=== PATIENT | male | born 1955 | race Caucasian/White ===

== ENCOUNTER 2022-04-25 11:34 | Day surgery (SDC) | payer MEDICARE, BC ==
[2022-04-24 09:29] LABS: BASOPHILS % (AUTO) 0.6 % (0-1); EOSINOPHILS # (AUTO) 0.2 X10'3 (0-0.9); EOSINOPHILS % (AUTO) 2.9 % (0-6); HEMATOCRIT 36.3 % (42.0-52.0); HEMOGLOBIN 12.3 g/dl (14.0-17.9); LYMPHOCYTES # (AUTO) 0.9 X10'3 (1.1-4.8); LYMPHOCYTES % (AUTO) 14.2 % (21-51); MEAN CORPUSCULAR HEMOGLOBIN 27.1 PG (27.0-31.0); MEAN CORPUSCULAR VOLUME 79.9 FL (78-98); MEAN PLATELET VOLUME 7.3 FL (7.4-10.4); MONOCYTES # (AUTO) 0.5 X10'3 (0-0.9); NEUTROPHILS # (AUTO) 4.7 X10'3 (1.8-7.7); NEUTROPHILS % (AUTO) 74.3 % (42-75); PLATELET COUNT 120 X10'3 (140-440); RED BLOOD COUNT 4.54 X10'6 (4.70-6.10); RED CELL DISTRIBUTION WIDTH 15.7 % (11.5-14.5); WHITE BLOOD COUNT 6.3 X10'3 (4.5-11.0)
[2022-04-24 09:37] LABS: APTT 27 SECONDS (22-32)
[2022-04-24 09:39] LABS: ALBUMIN 2.9 G/DL (3.4-5.0); ANION GAP 5 (8-16); BLOOD UREA NITROGEN 17 MG/DL (7-18); BUN/CREATININE RATIO 21.3 (5.4-32.0); CALCIUM 9.4 MG/DL (8.5-10.1); CHLORIDE 102 MMOL/L (99-107); CHOL/HDL RATIO 2.3 (0.00-4.99); CHOLESTEROL 164 MG/DL (0-200); GLUCOSE 170 MG/DL (70-104); HDL CHOLESTEROL 71 MG/DL (35-60); LDL CHOLESTEROL 75 MG/DL (50-100); SODIUM 137 MMOL/L (135-145); TOTAL CARBON DIOXIDE 30.2 MMOL/L (24-32); TRIGLYCERIDES 71 MG/DL (20-135); eGFR > 90 ML/MIN
[~2022-04-25] VITALS: Ht 172.7 cm; Wt 84.1 kg
[2022-04-25] MEDS ORDERED: normal saline 1,000 ML IV SCH (11:50)
[2022-04-25] MEDS ORDERED: diphenhydrAMINE 25mg capsule PO PRN (11:50)
[2022-04-25] MEDS ORDERED: LORazepam 0.5 MG tablet PO PRN (11:50)
[2022-04-25] MEDS ORDERED: LIDOcaine/PRILOcaine 5gm cream TP ONE (11:55)
[2022-04-25 11:57] VITALS: BP 112/68
[2022-04-25] MEDS ORDERED: METO25TA6 PO (12:32)
[2022-04-25] MEDS ORDERED: NOVLG SQ (12:32)
[2022-04-25] MEDS ORDERED: RAMI5CAP65 PO (12:32)
[2022-04-25] MEDS ORDERED: METF-438 PO (12:32)
[2022-04-25] MEDS ORDERED: FLO0.4C PO (12:32)
[2022-04-25] MEDS ORDERED: SITA100T11 PO (12:32)
[2022-04-25] MEDS ORDERED: LANTUS SQ (12:32)
[2022-04-25] MEDS ORDERED: ASPI-1053 PO (12:34)
[2022-04-25] MEDS ORDERED: voltaren (12:34)
[2022-04-25] MEDS ORDERED: MAGN400C PO (12:34)
[2022-04-25] MEDS ORDERED: Vitamin B12 (12:34)
[2022-04-25] MEDS ORDERED: iohexol 350MG/ML 100ml bottle IV ONE (13:18)
[2022-04-25] MEDS ORDERED: LIDOcaine 1% 30ml preserv. free vial ONE (13:18)
[2022-04-25] MEDS ORDERED: midazolam 1 mg/ML 2ml injection ONE (13:18)
[2022-04-25] MEDS ORDERED: fentaNYL/PF 50MCG/1 ML 2ML syringe ONE (13:18)
[2022-04-25] MEDS ORDERED: verapamil 2.5 mg/ml inj IV ONE (14:05)
[2022-04-25] MEDS ORDERED: nitroGLYCERIN-Tridil 50MG/D5W 250 ML IV ONE (14:05)
[2022-04-25] MEDS ORDERED: heparin 1,000unit/ml 10ml vial 10 ML ONE (14:05)
[2022-04-25 14:58] VITALS: BP 128/71
[2022-04-25 15:15] VITALS: BP 119/88
--- NOTE | 2022-04-25 15:15 | NUR ---
Pt having 5-7 second runs of tachycardia/ svt with rate to 180-190. Dr Haddad called to inform. Pt not having any symptoms, bp stable. Md request pt to be seen in office for Halter monitor.
[2022-04-25 15:30] VITALS: BP 115/83
[2022-04-25] MEDS ORDERED: HYDROcodone/acetaminophen 5mg/325mg tablet PO PRN (15:50)
[2022-04-25] MEDS ORDERED: HYDROcodone/acetaminophen 10/325mg tab PO PRN (15:50)
[2022-04-25] MEDS ORDERED: ondansetron/PF 4mg/2ml inj IV PRN (15:50)
[2022-04-25] MEDS ORDERED: proCHLORperazine 10 MG/2 ml inj IV PRN (15:50)
[2022-04-25] MEDS ORDERED: OXAZEpam 15mg capsule PO PRN (15:50)
[2022-04-25] MEDS ORDERED: CYAN500T46 PO (16:13)
[2022-04-25] MEDS ORDERED: DICL100G60 (16:15)
[2022-04-25] MEDS ORDERED: DICLOFENAC SODIUM TP SCH (17:00)
[2022-04-25] MEDS ORDERED: magnesium oxide 400mg tablet PO SCH (20:00)
[2022-04-25] MEDS ORDERED: Insulin ASPART (NovoLOG) pen SQ SCH (21:00)
[2022-04-25] MEDS ORDERED: insulin glargine (Lantus) pen - multi-dose SQ SCH (21:00)
[2022-04-26] MEDS ORDERED: linagliptin 5mg tablet PO SCH (08:00)
[2022-04-26] MEDS ORDERED: cyanocobalamin 500mcg tablet PO SCH (08:00)
[2022-04-26] MEDS ORDERED: lisinopril 10 MG tablet PO SCH (08:00)
[2022-04-26] MEDS ORDERED: aspirin 81mg tab.chew PO SCH (08:00)
[2022-04-26] MEDS ORDERED: tamsulosin 0.4mg capsule PO SCH (08:00)
[2022-04-26] MEDS ORDERED: metoprolol tartrate 25mg tablet PO SCH (16:25)
[2022-04-27] MEDS ORDERED: metFORMIN 500mg tablet PO SCH (20:00)
== END 2022-04-25 17:20 | disposition home or self-care (01) ==
LOC: SSTAY O 11:34
PROVIDERS: ATTEND Student in an Organized Health Care Education/Training Program
DX: R94.39 Abnormal result of other cardiovascular function study (principal); E11.9 Type 2 diabetes mellitus without complications; I11.0 Hypertensive heart disease with heart failure; I50.9 Heart failure, unspecified; Z79.899 Other long term (current) drug therapy; Z98.890 Other specified postprocedural states; Z79.82 Long term (current) use of aspirin
CPT/HCPCS: 36415; 80048; 80061; 82948; 85025; 85610; 85730; 93005; 93454; 99152; C1769; C1894; J1644; J1815; J2250; J3010; J3490; J7030; Q0163; Q9967; 99153; A4620; A6258; A6449

== ENCOUNTER 2022-09-19 11:44 | Day surgery (SDC) | payer MEDICARE, BC ==
[2022-09-19] VITALS (16 sets, daily range): BP systolic 108–175; BP diastolic 72–101
[~2022-09-19] VITALS: Ht 167.6 cm; Wt 88.1 kg
[~2022-09-19 11:44] MED LIST: ASPI-1053 PO; CYAN500T46 PO; DICL100G60; DOCUMENT DATE & TIME OF BETA-BLOCKER PO ONE; FLO0.4C PO; LANTUS SQ; MAGN400C PO; METF-438 PO; METO25TA6 PO; MULT-1085 PO; NOVLG SQ; RAMI5CAP65 PO; SITA100T11 PO; cefazolin 2gm/D5W 100mL 100 ML IV ONE; famotidine 20mg tablet PO ONE; ringers solution, lacted 1,000 ML IV SCH
[2022-09-19 12:58] LABS: BASOPHILS % (AUTO) 0.6 % (0-1); EOSINOPHILS # (AUTO) 0.2 X10'3 (0-0.9); EOSINOPHILS % (AUTO) 4.4 % (0-6); LYMPHOCYTES % (AUTO) 18.2 % (21-51); MEAN CORPUSCULAR HEMOGLOBIN 24.5 PG (27.0-31.0); MEAN CORPUSCULAR HGB CONC 33.4 g/dL (33.0-36.5); MEAN CORPUSCULAR VOLUME 73.4 FL (78-98); MEAN PLATELET VOLUME 6.8 FL (7.4-10.4); MONOCYTES # (AUTO) 0.5 X10'3 (0-0.9); MONOCYTES % (AUTO) 9.4 % (2-12); NEUTROPHILS # (AUTO) 3.7 X10'3 (1.8-7.7); NEUTROPHILS % (AUTO) 67.4 % (42-75); PRE OP HEMATOCRIT 33.4 % (42.0-52.0); PRE OP HEMOGLOBIN 11.2 g/dL (14.0-17.9); PRE OP PLATELET COUNT 128 X10'3 (140-440); RED BLOOD COUNT 4.54 X10'6 (4.70-6.10); RED CELL DISTRIBUTION WIDTH 16.9 % (11.5-14.5)
[2022-09-19 13:15] LABS: ALBUMIN 2.7 G/DL (3.4-5.0); ALBUMIN/GLOBULIN RATIO 0.5 (1.1-1.5); ALKALINE PHOSPHATASE 117 IU/L (46-116); BLOOD UREA NITROGEN 18 MG/DL (7-18); BUN/CREATININE RATIO 24.3 (10.0-20.0); CALCIUM 8.8 MG/DL (8.5-10.1); CHLORIDE 99 MMOL/L (99-107); CREATININE 0.74 MG/DL (0.60-1.10); PRE OP ALT 37 U/L (30-65); PRE OP ANION GAP 6 (8-16); PRE OP AST 48 U/L (10-37); PRE OP BILIRUB, TOTAL 0.4 MG/DL (0.0-1.0); PRE OP GLUCOSE 179 MG/DL (70-104); PRE OP POTASSIUM 3.9 MMOL/L (3.4-5.1); PRE OP SODIUM 132 MMOL/L (135-145); TOTAL CARBON DIOXIDE 26.6 MMOL/L (24-32); TOTAL PROTEIN 8.6 G/DL (6.4-8.2); eGFR > 90 ML/MIN
[2022-09-19] MEDS ORDERED: morphine 4 MG/ML inj SYRINge IV PRN (13:20)
[2022-09-19] MEDS ORDERED: hydrALAZINE 20mg/ml inj. IV PRN (13:20)
[2022-09-19] MEDS ORDERED: morphine 2 MG/ML inj. syringe IV PRN (13:20)
[2022-09-19] MEDS ORDERED: fentaNYL/PF 50MCG/1 ML 2ML syringe IV PRN ×2 (13:20)
[2022-09-19] MEDS ORDERED: ondansetron/PF 4mg/2ml inj IV PRN (13:20)
[2022-09-19] MEDS ORDERED: ringers solution, lacted 1,000 ML IV SCH (13:20)
[2022-09-19] MEDS ORDERED: vancomycin 1,000mg inj ONE (13:35)
[2022-09-19] MEDS ORDERED: BUPIVAcaine/PF 2.5 mg/ml (0.25%) 30ml vial ONE (13:35)
[2022-09-19] MEDS ORDERED: LIDOcaine 2% (20mg/ml) 5ml vial ONE (13:55)
[2022-09-19] MEDS ORDERED: PHENYLephrine 10mg/ml 5ml injection IV ONE (13:55)
[2022-09-19] MEDS ORDERED: sevoflurane 250ml liquid IH ONE (13:55)
[2022-09-19] MEDS ORDERED: midazolam 1 mg/ML 2ml injection ONE (14:00)
[2022-09-19] MEDS ORDERED: ondansetron/PF 4mg/2ml inj ONE (14:05)
[2022-09-19] MEDS ORDERED: propofol inj 20 ML IV ONE (14:05)
--- NOTE | 2022-09-19 14:56 | NUR ---
Received from OR via , accompanied by Anesthesiologist DR GRAHAM and report given by Anesthesiolgist. VSS. ON 10 LITERWS WITH MASK. 20G IN LEFT HAND . DRESSING WITH BANDAGE ON RIGHT FOOT. Addendum: 09/19/22 at 1457 by Maci Tompkins RN Amended: Links added.
[2022-09-19] MEDS: labetalol 20mg/4ml (5mg/ml) syringe IV PRN ×2 (15:38→15:47)
--- NOTE | 2022-09-19 17:27 | NUR ---
CALL PLACED TO DR DUNLAP TO INFORM HIM THAT ONCE PT GOT UP TO GET DRESSED HE BEGAN TO BLEED. ORDER RECEIVED TO RE-ENFORCE THE DRSG AND IF THE PT CONTINUES TO BLEED TO CHANGE DRESSING. PT HAS BEEN EDUCATED ON THE INPORTANCE AND NEED TO KEEO FOOT ELEVATED. WILL CONTINUE TO ASSESS.
--- NOTE | 2022-09-19 18:10 | NUR ---
ALL DISCHARGE CRITERIA HAS BEEN MET. VSS, PAIN AT A TOLERABLE LEVEL, VOIDING AND ABLE TO SAFELY AMBULATE AND TRANSFER SELF. IV TAKEN OUT WITHOUT ANY COMPLICATIONS. PT DID NOT CONTINUE TO HAVE FURTHER BLEEDING. DRESSING RE-ENFORCEMENT WAS CDI, PT HAS GOOD CAPILLARY REFILL. PT USING CRUTCHES WELL. PT HAS BEEN EDUCATED TO KEEP FOOT ELEVATED ESPECIALLY THROUGH THE NIGHT AND INSTRUCTED TO FOLLOW UP WITH MD IF ANY ISSUES ARISE. ASSISTED PT IN TO VEHICLE, FOOT WAS ELEVATED ON BACK SEAT AND PILLOW WAS USED. ALL DISCHARGE INSTRUCTIONS COVERED WITH PATIENT AND ALL QUESTIONS ANSWERED. PATIENT TAKEN OUT VIA WHEELCHAIR TO PERSONAL VEHICLE WHERE FAMILY/FRIEND DROVE PATIENT HOME
== END 2022-09-19 17:56 | disposition home or self-care (01) ==
LOC: PAS 11:44
PROVIDERS: ATTEND Orthopaedic Surgery Orthopaedic Trauma
DX: E11.69 Type 2 diabetes mellitus with other specified complication (principal); E11.610 Type 2 diabetes mellitus with diabetic neuropathic arthropathy; M86.8X7 Other osteomyelitis, ankle and foot; M19.90 Unspecified osteoarthritis, unspecified site; I10 Essential (primary) hypertension; Z79.899 Other long term (current) drug therapy; Z79.82 Long term (current) use of aspirin; Z87.891 Personal history of nicotine dependence
CPT/HCPCS: 28820; 36415; 80053; 82948; 85025; 87070; 87075; 87077; 87186; A6222; J0690; J2250; J2405; J2704; J3370; J3490; J7030; J7120; Z7506; Z7512; A4618; A6446; A6449; A7000; J2370

== ENCOUNTER 2023-02-03 10:41 | Emergency (ER) | payer MEDICARE, BC ==
[~2023-02-03] VITALS: Ht 172.7 cm; Wt 93.6 kg
[~2023-02-03 10:41] MED LIST changes: -DOCUMENT DATE & TIME OF BETA-BLOCKER PO ONE; -cefazolin 2gm/D5W 100mL 100 ML IV ONE; -famotidine 20mg tablet PO ONE; -ringers solution, lacted 1,000 ML IV SCH
[2023-02-03 12:36] VITALS: BP 178/90; PULSE 81; RESP 20; TEMP 97.9; O2SAT 97
[2023-02-03 13:04] LABS: BASOPHILS % (AUTO) 0.4 % (0-1); EOSINOPHILS # (AUTO) 0.2 X10'3 (0-0.9); EOSINOPHILS % (AUTO) 4.9 % (0-6); HEMATOCRIT 30.1 % (42.0-52.0); HEMOGLOBIN 9.4 g/dl (14.0-17.9); LYMPHOCYTES # (AUTO) 0.6 X10'3 (1.1-4.8); LYMPHOCYTES % (AUTO) 14.4 % (21-51); MEAN CORPUSCULAR HEMOGLOBIN 25.6 PG (27.0-31.0); MEAN CORPUSCULAR HGB CONC 31.3 g/dL (33.0-36.5); MEAN CORPUSCULAR VOLUME 81.8 FL (78-98); MONOCYTES # (AUTO) 0.5 X10'3 (0-0.9); NEUTROPHILS # (AUTO) 2.9 X10'3 (1.8-7.7); NEUTROPHILS % (AUTO) 68.3 % (42-75); PLATELET COUNT 53 X10'3 (140-440); RED BLOOD COUNT 3.68 X10'6 (4.70-6.10); RED CELL DISTRIBUTION WIDTH 18.5 % (11.5-14.5); WHITE BLOOD COUNT 4.3 X10'3 (4.5-11.0)
[2023-02-03 13:25] LABS: ALANINE AMINOTRANSFERASE 23 U/L (12-78); ALBUMIN 2.2 G/DL (3.4-5.0); ALBUMIN/GLOBULIN RATIO 0.3 (1.1-1.5); ALKALINE PHOSPHATASE 116 IU/L (46-116); ANION GAP 10 (8-16); ASPARTATE AMINO TRANSFERASE 42 U/L (10-37); BILIRUBIN,TOTAL 0.6 MG/DL (0.1-1.0); BLOOD UREA NITROGEN 17 MG/DL (7-18); BUN/CREATININE RATIO 17.7 (10.0-20.0); CALCIUM 8.4 MG/DL (8.5-10.1); CHLORIDE 104 MMOL/L (99-107); CREATININE 0.96 MG/DL (0.60-1.10); GLUCOSE 134 MG/DL (70-104); POTASSIUM 3.7 MMOL/L (3.5-5.1); SODIUM 139 MMOL/L (135-145); TOTAL CARBON DIOXIDE 24.6 MMOL/L (24-32); TOTAL PROTEIN 8.9 G/DL (6.4-8.2); eCRCL 72 ML/MIN; eGFR 78 ML/MIN
[2023-02-03 13:40] LABS: ANISOCYTOSIS 2+; PLATELET ESTIMATE DECREASED
[2023-02-03 13:41] LABS: POLYCHROMASIA FEW
== END 2023-02-03 17:34 | disposition left against medical advice (07) ==
LOC: ER 10:42
DX: R60.9 Edema, unspecified (principal); Z53.21 Procedure and treatment not carried out due to patient leaving prior to being seen by health care provider
CPT/HCPCS: 36415; 80053; 85008; 85025; 93005; 99281

== ENCOUNTER → 2023-05-15 | Outpatient (CLI) | payer MEDICARE, BC ==
[2023-05-15 16:48] LABS: ALBUMIN 2.4 G/DL (3.4-5.0); ANION GAP 6 (8-16); BLOOD UREA NITROGEN 45 MG/DL (7-18); BUN/CREATININE RATIO 31.3 (10.0-20.0); C-REACTIVE PROTEIN 1.15 MG/DL (0.0-0.5); CALCIUM 7.7 MG/DL (8.5-10.1); CHLORIDE 99 MMOL/L (99-107); CREATININE 1.44 MG/DL (0.60-1.10); GLUCOSE 236 MG/DL (70-104); POTASSIUM 5.6 MMOL/L (3.5-5.1); SODIUM 129 MMOL/L (135-145); TOTAL CARBON DIOXIDE 23.7 MMOL/L (24-32); eGFR 49 ML/MIN
[2023-05-15 16:52] LABS: BASOPHILS % (AUTO) 0.2 % (0-1); EOSINOPHILS # (AUTO) 0.1 X10'3 (0-0.9); EOSINOPHILS % (AUTO) 2.5 % (0-6); HEMOGLOBIN 7.2 g/dl (14.0-17.9); LYMPHOCYTES # (AUTO) 0.8 X10'3 (1.1-4.8); LYMPHOCYTES % (AUTO) 18.7 % (21-51); MEAN CORPUSCULAR HEMOGLOBIN 33.6 PG (27.0-31.0); MEAN CORPUSCULAR HGB CONC 33.2 g/dL (33.0-36.5); MEAN CORPUSCULAR VOLUME 101.1 FL (78-98); MEAN PLATELET VOLUME 7.5 FL (7.4-10.4); MONOCYTES # (AUTO) 0.5 X10'3 (0-0.9); MONOCYTES % (AUTO) 12.4 % (2-12); NEUTROPHILS # (AUTO) 2.7 X10'3 (1.8-7.7); NEUTROPHILS % (AUTO) 66.2 % (42-75); RED BLOOD COUNT 2.14 X10'6 (4.70-6.10); RED CELL DISTRIBUTION WIDTH 24.4 % (11.5-14.5)
[2023-05-15 17:06] LABS: HEMATOCRIT 21.7 % (42.0-52.0); PLATELET COUNT 30 X10'3 (140-440)
== END | disposition home or self-care (01) ==
LOC: LAB SPEC 16:24
PROVIDERS: ATTEND Internal Medicine Infectious Disease
DX: D69.59 Other secondary thrombocytopenia (principal); G93.41 Metabolic encephalopathy; R65.21 Severe sepsis with septic shock
CPT/HCPCS: 80048; 85025; 85651; 86140